=== PATIENT | female | born 1965 | race Caucasian/White ===

== ENCOUNTER 2020-03-06 06:58 | Day surgery (SDC) | payer OTHER ==
[~2020-03-06 06:58] MED LIST: Midazolam 1 MG/ML 2 ML SDV ONE; fentaNYL 100 MCG/2 ML SDV ONE
[2020-03-06] MEDS ORDERED: fentaNYL 100 MCG/2 ML SDV IV ONE ×3 (06:59→07:58)
[2020-03-06] MEDS ORDERED: Midazolam 1 MG/ML 2 ML SDV IV ONE ×7 (06:59→08:03)
[2020-03-06] MEDS ORDERED: Lactated Ringers 1,000 ML IV SCH (07:00)
[2020-03-06] MEDS ORDERED: Scopolamine 1.5 MG Transdermal Patch TRDERM ONE (07:40)
[2020-03-06] MEDS ORDERED: Scopolamine 1.5 MG Transdermal Patch ONE (07:42)
--- NOTE | 2020-03-06 12:09 | OR ---
DATE: 03/06/2020 PREOPERATIVE DIAGNOSIS: Right lower quadrant abdominal pain and abnormal CT scan. POSTOPERATIVE DIAGNOSIS: Right lower quadrant abdominal pain and abnormal CT scan. PROCEDURE: Total colonoscopy. ANESTHESIA: Conscious sedation with IV Versed and fentanyl. SPECIMEN: None. OPERATIVE FINDINGS: Normal colonoscopy. RECOMMENDATIONS: Followup colonoscopy in 10 years for polyp screening. INDICATION FOR PROCEDURE: This 54-year-old female has right lower quadrant and right-sided abdominal pain. This prompted a CT scan which showed a possible apple-core lesion in the right colon or hepatic flexure of the colon. PROCEDURE IN DETAIL: After adequate preparation, the colonoscope was inserted into the rectum. This was easily passed all the way to the cecum. Confirmation of the cecum was made by visualization of the ileocecal valve, the appendiceal opening, and palpation in the right lower quadrant and a light shining through the right lower quadrant. The bowel prep was excellent. On withdrawal of the scope, a good examination of the colon was accomplished. The patient has no masses, polyps, bleeding sites, colitis, or evidence of diverticulosis. Anal and rectal examinations are also normal. Air was suctioned from the colon and the scope removed. [facility] /[id number] CC: SYDNEE Darling [facility]
== END 2020-03-06 10:00 | disposition home or self-care (01) ==
LOC: DL.ENDO 06:58
PROVIDERS: ATTEND Surgery
DX: R10.31 Right lower quadrant pain (principal); R93.3 Abnormal findings on diagnostic imaging of other parts of digestive tract; Z11.59 Encounter for screening for other viral diseases; Z88.0 Allergy status to penicillin
CPT/HCPCS: 45378; 87635; A9270; J2250; J3010; J7120; U0002

== ENCOUNTER 2021-05-28 13:46 | Emergency (ER) | payer OTHER ==
--- NOTE | 2021-05-28 14:46 | CR ---
EXAMINATION: Wrist Comp Min 4V Rt SEX: Female AGE: 55 years CLINICAL HISTORY: 55-year-old female pain right wrist. Interpretation: Homogeneous normal bone mineral density for age and gender. Solitary tiny cyst ulnar styloid and small bone infarct triquetrum, proximal carpal row. *No sign of pathologic skeletal lesion, right wrist fracture, dislocation or arthritic degenerative change. No foreign bodies. Distal radius/ulna and metacarpal bones unremarkable.
--- NOTE | 2021-05-28 16:01 | EDM.PDOC ---
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 They pt fell backwards onto her R wrist and developed pain at the site of the wrist. She is here for an xray to see if its broken. Denies other injury, or complaints. Right Wrist Pain Score (Numeric/FACES): 5 - Related Data Allergies Allergy/AdvReac Type Severity Reaction Status Date / Time Penicillins Allergy Hives Verified 05/28/21 14:11 Home Meds: Home Meds L.acidoph,Paracasei, B.lactis [Probiotic] 1 each PO DAILY 03/04/20 [History] Vit A/Vit C/Vit E/Zinc/Copper [Preservision] 1 each PO DAILY 03/04/20 [History] estradioL [Vagifem] 10 mcg VG WEEKLY 03/04/20 [History] Sertraline [Zoloft] 25 mg PO ASDIRECTED 05/28/21 [History] Past Medical History - Past Health History Medical/Surgical History: Denies Medical/Surgical History HEENT History: Reports: None Cardiovascular History: Reports: Arrhythmia Respiratory History: Reports: None Gastrointestinal History: Reports: Chronic Diarrhea, Irritable Bowel Syndrome Genitourinary History: Reports: None 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: , Spontaneous Musculoskeletal History: Reports: None, Fracture Neurological History: Reports: None Psychiatric History: Reports: None Endocrine/Metabolic History: Reports: None Hematologic History: Reports: None Immunologic History: Reports: None Oncologic (Cancer) History: Reports: None Dermatologic History: Reports: None - Infectious Disease History Infectious Disease History: Reports: None - Past Surgical History Head Surgeries/Procedures: Reports: None HEENT Surgical History: Reports: None Cardiovascular Surgical History: Reports: None Respiratory Surgical History: Reports: None GI Surgical History: Reports: Cholecystectomy, Colonoscopy Female Surgical History: Reports: Cervical Cryotherapy, Hysterectomy Musculoskeletal Surgical History: Reports: None Social & Family History - Family History Family Medical History: No Pertinent Family History - Tobacco Use Tobacco Use Status *Q: Never Tobacco User - Caffeine Use Caffeine Use: Reports: Coffee Caffeine Use Comment: 16 oz daily - Recreational Drug Use Recreational Drug Use: No Review of Systems - Review of Systems Review Of Systems: Comprehensive ROS is negative, except as noted in HPI. ED EXAM, GENERAL - Physical Exam Exam: See Below Exam Limited By: No Limitations General Appearance: Alert, No Apparent Distress Respiratory/Chest: No Respiratory Distress, Lungs Clear, Normal Breath Sounds, No Accessory Muscle Use, Chest Non-Tender Cardiovascular: Normal Peripheral Pulses, Regular Rate, Rhythm, No Edema, No Gallop, No JVD, No Murmur, No Rub Peripheral Pulses: 2+: Radial (L), Radial (R) Extremities: Other (R wrist tender to palpation, no visible deformity, cms intact no deficits. ) Course - Vital Signs Last Recorded V/S: Last Vital Signs Temp 98.4 F 05/28/21 14:06 Pulse 75 05/28/21 14:06 Resp 14 05/28/21 14:06 BP 135/81 05/28/21 14:06 Pulse Ox 97 05/28/21 14:06 Departure - Departure Time of Disposition: 16:02 Disposition: Home, Self-Care 01 Condition: Good Clinical Impression: Wrist sprain Qualifiers: Encounter type: initial encounter Laterality: right Qualified Code(s): S63.501A - Unspecified sprain of right wrist, initial encounter - Discharge Information *PRESCRIPTION DRUG MONITORING PROGRAM REVIEWED*: Not Applicable *COPY OF PRESCRIPTION DRUG MONITORING REPORT IN PATIENT ROBBIN: Not Applicable Instructions: Wrist Sprain, Adult Forms: ED Department Discharge Additional Instructions: Use tylenol and motrin for pain as needed. Ice your wrist. If any new symptoms or concerns develop contact your primary care facility ore return to the Er. Sepsis Event Note (ED) - Evaluation Sepsis Screening Result: No Definite Risk - Focused Exam Vital Signs: Vital Signs Temp Pulse Resp BP Pulse Ox 05/28/21 14:06 98.4 F 75 14 135/81 97
== END 2021-05-28 16:05 | disposition home or self-care (01) ==
LOC: DL.ED 13:46
DX: S63.501A Unspecified sprain of right wrist, initial encounter (principal); Z88.0 Allergy status to penicillin; W18.39XA Other fall on same level, initial encounter; Y93.02 Activity, running; Y92.219 Unspecified school as the place of occurrence of the external cause
CPT/HCPCS: 73110-RT; 99283-25